=== PATIENT | female | born 1985 | race Hispanic/Latino ===

== ENCOUNTER 2023-03-26 17:04 | Inpatient (IN) | payer SELFPAY ==
[~2023-03-26] VITALS: Ht 154.9 cm; Wt 99.8 kg
[2023-03-26] VITALS (8 sets, daily range): BP systolic 130–136; BP diastolic 64–86
[2023-03-26] MEDS ORDERED: ONDANSETRON HCL INJ 2MG/ML 2ML 2 MG/ML VIAL IV STA (17:10)
[2023-03-26] MEDS ORDERED: KETOROLAC TROMETHAMINE 30 MG/ML VIAL IV STA (17:10)
[2023-03-26] MEDS ORDERED: SODIUM CHLORIDE 0.9% 1000ML 1,000 ML IV STA (17:10)
[2023-03-26 17:52] LABS: BASOPHILS # (AUTO) 0.1 (0.0-0.1); BASOPHILS % 1.2 % (0.0-1.0); EOSINOPHILS % 0.4 % (0.0-6.0); HEMATOCRIT 25.2 % (34.2-44.1); LYMPHOCYTES # (AUTO) 1.8 (1.0-3.2); LYMPHOCYTES % 18.9 % (18.0-39.1); MEAN CORPUSCULAR HEMOGLOBIN 13.8 pg (28-32); MEAN CORPUSCULAR HGB CONC 24.6 g/dL (31-35); MEAN CORPUSCULAR VOLUME 56.1 fL (81-99); MONOCYTES # (AUTO) 0.7 (0.2-0.8); MONOCYTES % 7.1 % (4.4-11.3); NEUTROPHILS # (AUTO) 6.8 (2.1-6.9); NEUTROPHILS % 72.1 % (38.7-80.0); PLATELET COUNT 506 x10e3/uL (140-360); RED BLOOD COUNT 4.49 x10e6/uL (3.6-5.1); RED CELL DISTRIBUTION WIDTH 21.4 % (11.7-14.4)
[2023-03-26 17:57] LABS: HEMOGLOBIN 6.2 g/dL (12.0-16.0)
[2023-03-26] MEDS ORDERED: SODIUM CHLORIDE 0.9% 250ML 250 ML IV ONE (18:00)
[2023-03-26 18:07] LABS: INR 1.06; PROTHROMBIN TIME 14.3 seconds (11.9-14.5)
[2023-03-26 18:08] LABS: PARTIAL THROMBOPLASTIN TIME 25.6 seconds (23.8-35.5)
[2023-03-26 18:09] LABS: ALANINE AMINOTRANSFERASE 14 IU/L (0-55); ALBUMIN 3.9 g/dL (3.5-5.0); ALKALINE PHOSPHATASE 67 IU/L (40-150); ANION GAP 10.5 mmol/L (8-16); BLOOD UREA NITROGEN 5 mg/dL (7-26); BUN/CREATININE RATIO 8 (6-25); CALCIUM 8.9 mg/dL (8.4-10.2); CARBON DIOXIDE 22 mmol/L (22-29); CHLORIDE 105 mmol/L (98-107); CREATININE, SERUM 0.61 mg/dL (0.57-1.11); GLUCOSE 105 mg/dL (74-118); LIPASE 14 U/L (8-78); POTASSIUM 3.5 mmol/L (3.5-5.1); SODIUM 134 mmol/L (136-145)
[2023-03-26] MEDS ORDERED: IOPAMIDOL 370 MG/ML 100 ML INFUS..BTL INJ ONE (18:34)
[2023-03-26] MEDS ORDERED: Morphine 4mg INJECTION 4 MG/ML INJ IV PRN (19:00)
[2023-03-26] MEDS ORDERED: ONDANSETRON HCL INJ 2MG/ML 2ML 2 MG/ML VIAL IV PRN (19:00)
[2023-03-26 19:25] LABS: CLARITY,URINE SL CLOUDY (CLEAR); COLOR,URINE YELLOW (YELLOW); KETONES,URINE 1+ (NEGATIVE); LEUKOCYTE ESTERASE ,URINE NEGATIVE (NEGATIVE); NITRITE,URINE NEGATIVE (NEGATIVE); PROTEIN,URINE DIPSTICK NEGATIVE (NEGATIVE); URINE UROBILINOGEN 0.2 mg/dL (0.2 - 1)
[2023-03-26 19:38] LABS: BACTERIA,URINE MODERATE /HPF; EPITHELIAL CELLS,URINE FEW /LPF; RBC,URINE 0-5 /HPF (0-5); WBC,URINE (MAN) 0-5 /HPF (0-5)
[2023-03-26] MEDS: SODIUM CHLORIDE 0.9% 1000ML 1,000 ML IV SCH (19:58)
[2023-03-26 20:37] LABS: PLATELET ESTIMATE MODERATELY INCREASED; PLATELET MORPHOLOGY COMMENT NORMAL; RBC MORPHOLOGY COMMENT NORMAL
[2023-03-26] MEDS ORDERED: DONNATAL/LIDOCAINE/MAALOX 30 ML SUSP PO ONE (21:00)
[2023-03-26] MEDS ORDERED: SODIUM CHLORIDE 0.9% 250ML 250 ML ONE (22:33)
[2023-03-27] VITALS (17 sets, daily range): BP systolic 103–146; BP diastolic 53–99
[2023-03-27] MEDS ORDERED: HYDRALAZINE HCL 20 MG/ML VIAL IV PRN (01:30)
[2023-03-27] MEDS ORDERED: DEXTROSE 50% SYRINGE 50 ML IV PRN (01:30)
[2023-03-27] MEDS ORDERED: ACETAMINOPHEN 325 MG TAB PO PRN (01:30)
[2023-03-27] MEDS ORDERED: LIDOCAINE 4% PATCH TP PRN (01:30)
[2023-03-27] MEDS ORDERED: SIMETHICONE 80 MG CHEW PO PRN (01:30)
[2023-03-27] MEDS ORDERED: BENZONATATE 100 MG CAP PO PRN (01:30)
[2023-03-27] MEDS ORDERED: POTASSIUM CHLORIDE 20 MEQ TAB CR PO PRN (01:30)
[2023-03-27] MEDS ORDERED: DIPHENHYDRAMINE HCL 25 MG CAP PO PRN (01:30)
[2023-03-27] MEDS ORDERED: DOCUSATE SODIUM 100 MG CAP PO PRN (01:30)
[2023-03-27] MEDS ORDERED: MELATONIN 5 MG TABLET PO PRN (01:30)
[2023-03-27] MEDS ORDERED: ALBUTEROL SULF 0.083% NEB SOLN 3 ML NEB NEB PRN (01:45)
[2023-03-27] MEDS ORDERED: IPRATROPIUM BROMIDE 0.02% 2.5 ML NEB NEB PRN (01:45)
[2023-03-27] MEDS: SODIUM CHLORIDE 0.9% 1000ML 1,000 ML IV SCH ×2 (03:08→17:05)
[2023-03-27 06:48] LABS: BASOPHILS # (AUTO) 0.1 (0.0-0.1); BASOPHILS % 0.9 % (0.0-1.0); EOSINOPHILS # (AUTO) 0.1 (0.0-0.4); EOSINOPHILS % 1.6 % (0.0-6.0); HEMATOCRIT 28.4 % (34.2-44.1); HEMOGLOBIN 7.8 g/dL (12.0-16.0); LYMPHOCYTES # (AUTO) 1.6 (1.0-3.2); LYMPHOCYTES % 18.8 % (18.0-39.1); MEAN CORPUSCULAR HEMOGLOBIN 17.1 pg (28-32); MEAN CORPUSCULAR HGB CONC 27.5 g/dL (31-35); MEAN CORPUSCULAR VOLUME 62.1 fL (81-99); MONOCYTES # (AUTO) 0.8 (0.2-0.8); MONOCYTES % 9.1 % (4.4-11.3); NEUTROPHILS # (AUTO) 5.9 (2.1-6.9); NEUTROPHILS % 69.4 % (38.7-80.0); PLATELET COUNT 404 x10e3/uL (140-360); RED BLOOD COUNT 4.57 x10e6/uL (3.6-5.1)
[2023-03-27 07:05] LABS: ANION GAP 10.3 mmol/L (8-16); BLOOD UREA NITROGEN < 5 mg/dL (7-26); CALCIUM 8.1 mg/dL (8.4-10.2); CARBON DIOXIDE 22 mmol/L (22-29); CHLORIDE 109 mmol/L (98-107); GLUCOSE 106 mg/dL (74-118); POTASSIUM 3.3 mmol/L (3.5-5.1); SODIUM 138 mmol/L (136-145)
[2023-03-27 07:06] LABS: BUN/CREATININE RATIO 8 (6-25)
[2023-03-27] MEDS: PANTOPRAZOLE SOD 40 MG TABEC PO SCH (07:30)
[2023-03-27 08:34] LABS: MICROCYTOSIS MODERATE; PLATELET ESTIMATE ADEQUATE; RBC MORPHOLOGY COMMENT NORMAL
[2023-03-27 08:35] LABS: ANISOCYTOSIS SLIGHT; PLATELET MORPHOLOGY COMMENT FEW LARGE
[2023-03-27] MEDS ORDERED: DEXTROSE 5%/0.9% SOD CHL 1,000 ML IV SCH (12:00)
[2023-03-27] MEDS ORDERED: KETOROLAC TROMETHAMINE 30 MG/ML VIAL ONE (12:38)
[2023-03-27] MEDS ORDERED: SEVOFLURANE INHAL SOLN 250 ML PEN BTL ONE (12:38)
[2023-03-27] MEDS ORDERED: NEOSTIGMINE 1 MG/ML 10ML VIAL ONE (12:38)
[2023-03-27] MEDS ORDERED: POVIDONE IODINE 0.05% 0.05 % ML PO ONE (12:38)
[2023-03-27] MEDS ORDERED: PROPOFOL IV EMULSION 10 MG/ML 20 ML VIAL ONE (12:38)
[2023-03-27] MEDS ORDERED: DEXAMETHASONE SOD PHOS INJ 4 MG/ML SDV ONE (12:38)
[2023-03-27] MEDS ORDERED: GLYCOPYRROLATE INJ 0.2 MG/ML VIAL ONE (12:38)
[2023-03-27] MEDS ORDERED: LIDOCAINE HCL 2% LOCAL INJ 5 ML SDV VIAL INJ ONE (12:38)
[2023-03-27] MEDS ORDERED: PHENYLEPHRINE HCL 1% 10 MG/ML VIAL ONE (12:38)
[2023-03-27] MEDS ORDERED: ROCURONIUM BROMIDE 10 MG/ML 5ML VIAL IV ONE (12:38)
[2023-03-27] MEDS ORDERED: ONDANSETRON HCL INJ 2MG/ML 2ML 2 MG/ML VIAL ONE (12:38)
[2023-03-27] MEDS ORDERED: BUPIVACAINE 0.5%/EPI 30 ML SDV INJ ONE (12:57)
[2023-03-27] MEDS ORDERED: SODIUM CHLORIDE 0.9% 100 ML ONE (12:59)
[2023-03-27] MEDS ORDERED: ACETAMINOPHEN 1000 MG/100 ML 100 ML IV ONE (12:59)
[2023-03-27] MEDS ORDERED: FENTANYL CITRATE/PF 100MCG/2 ML INJ ONE ×2 (13:15→13:19)
[2023-03-27] MEDS ORDERED: HYDROMORPHONE 1MG/1ML INJ IV PRN (15:00)
[2023-03-27] MEDS ORDERED: HYDROCODONE/APAP 7.5MG-325MG 1 EA TAB PO PRN (15:00)
[2023-03-28] MEDS: SODIUM CHLORIDE 0.9% 1000ML 1,000 ML IV SCH ×2 (03:25→11:40)
[2023-03-28 04:58] LABS: BASOPHILS # (AUTO) 0.1 (0.0-0.1); BASOPHILS % 0.6 % (0.0-1.0); HEMATOCRIT 25.9 % (34.2-44.1); HEMOGLOBIN 7.1 g/dL (12.0-16.0); LYMPHOCYTES # (AUTO) 1.2 (1.0-3.2); MEAN CORPUSCULAR HEMOGLOBIN 17.1 pg (28-32); MEAN CORPUSCULAR HGB CONC 27.4 g/dL (31-35); MEAN CORPUSCULAR VOLUME 62.3 fL (81-99); MONOCYTES # (AUTO) 0.5 (0.2-0.8); MONOCYTES % 5.6 % (4.4-11.3); NEUTROPHILS # (AUTO) 6.8 (2.1-6.9); NEUTROPHILS % 79.6 % (38.7-80.0); PLATELET COUNT 399 x10e3/uL (140-360); RED BLOOD COUNT 4.16 x10e6/uL (3.6-5.1); RED CELL DISTRIBUTION WIDTH 28.7 % (11.7-14.4)
[2023-03-28 05:16] LABS: ANION GAP 11.8 mmol/L (8-16); CALCIUM 8.3 mg/dL (8.4-10.2); CREATININE, SERUM 0.58 mg/dL (0.57-1.11); POTASSIUM 3.8 mmol/L (3.5-5.1)
[2023-03-28] MEDS: PANTOPRAZOLE SOD 40 MG TABEC PO SCH (08:04)
[2023-03-28 08:27] VITALS: BP 106/63
[2023-03-28 09:09] VITALS: BP 106/63
[2023-03-28 12:07] VITALS: BP 111/67
[2023-03-28] MEDS ORDERED: FEOSOL325 MG PO (12:54)
[2023-03-28] MEDS ORDERED: FERROUS SULFAT325 MG PO (12:54)
[2023-03-28 16:43] VITALS: BP 109/72
[2023-03-28] MEDS ORDERED: LEVOFLOXACIN250 MG PO (18:23)
[2023-03-28] MEDS ORDERED: ONDANSETRON HCL 4 MG ORAL DISINTEGRATING TAB PO PRN (19:00)
== END 2023-03-28 18:40 | disposition home or self-care (01) | DRG 419 ==
LOC: ER 17:11 → ERHOLD 19:01 → ICU 21:57 → INTOOBSV 03-27 08:59 → OBSVTOIN 03-27 08:59 → INTOOBSV 03-27 15:41 → MED/SURG 03-27 15:43 → OBSVTOIN 03-27 15:45
PROVIDERS: ADMIT Internal Medicine; ATTEND Internal Medicine
PROC: 30233N1 Transfusion of Nonautologous Red Blood Cells into Peripheral Vein, Percutaneous Approach (ICD-10-PCS; 2023-03-27)
PROC: 0FT44ZZ Resection of Gallbladder, Percutaneous Endoscopic Approach (ICD-10-PCS; principal; 2023-03-27 13:21)
DX: K80.10 Calculus of gallbladder with chronic cholecystitis without obstruction (principal); D50.0 Iron deficiency anemia secondary to blood loss (chronic); E87.6 Hypokalemia; N92.0 Excessive and frequent menstruation with regular cycle; N85.9 Noninflammatory disorder of uterus, unspecified; Z20.822 Contact with and (suspected) exposure to COVID-19
CPT/HCPCS: 0223U; 36415; 74177; 76705; 76830; 80048; 80053; 81001; 83690; 84484; 84702; 85025; 85610; 85730; 86850; 86900; 86920; 88304; 94799; 96360; 99252; 99284; C1766; G0378; J1100; J1885; J2001; J2270; J2370; J2405; J2543; J2710; J7030; J7042; J7050; P9016; Q9967